=== PATIENT | female | born 1980 | race Caucasian/White ===

== ENCOUNTER 2017-02-05 06:46 | Emergency (ER) | payer OTHER ==
[2017-02-05 11:05] VITALS: BP 130/64
== END 2017-02-05 11:00 | disposition home or self-care (01) ==
LOC: ED 06:46
DX: L72.3 Sebaceous cyst (principal); R55 Syncope and collapse

== ENCOUNTER 2017-05-11 17:48 | Emergency (ER) | payer OTHER | END 2017-05-11 19:20 | disposition left against medical advice (07) | LOC: ED 17:48 | DX: Z53.21 Procedure and treatment not carried out due to patient leaving prior to being seen by health care provider (principal) ==

== ENCOUNTER 2017-05-17 17:50 | Emergency (ER) | payer OTHER ==
[~2017-05-17] VITALS: Ht 152.4 cm; Wt 96.8 kg
[2017-05-17 19:28] LABS: BASOPHIL % 0.4 % (0-2); PLATELET COUNT 288 x10^3mcL (130-400)
[2017-05-17 19:36] LABS: RED CELL DISTRIBUTION WIDTH 14.6 % (11.5-14.5)
[2017-05-17 19:40] LABS: CALCIUM 8.8 mg/dL (8.5-10.1); CARBON DIOXIDE 26.6 mmol/L (21-32); CHLORIDE SERUM 102 mmol/L (98-107); CREATININE SERUM 0.5 mg/dL (0.6-1.0); GFR1 > 60 mL/min; GLUCOSE SERUM 94 mg/dL (74-106); POTASSIUM SERUM 3.4 mmol/L (3.5-5.1); SODIUM SERUM 133 mmol/L (136-145)
[2017-05-17 19:45] LABS: ALBUMIN 3.7 g/dL (3.4-5.0); ALKALINE PHOSPHATASE 55 U/L (46-116); ALT/SGPT 15 U/L (14-59); AST/SGOT 15 U/L (15-37); BILIRUBIN TOTAL 0.32 mg/dL (0.20-1.00); TOTAL PROTEIN, SERUM 7.5 g/dL (6.4-8.2)
[2017-05-17 21:05] VITALS: BP 131/79
== END 2017-05-17 21:05 | disposition home or self-care (01) ==
LOC: ED 17:50
PROVIDERS: Emergency Medicine
DX: M79.671 Pain in right foot (principal); E11.9 Type 2 diabetes mellitus without complications; M79.672 Pain in left foot; Z79.899 Other long term (current) drug therapy
CPT/HCPCS: 36415

== ENCOUNTER 2018-04-09 08:04 | Emergency (ER) | payer OTHER ==
[~2018-04-09] VITALS: Ht 152.4 cm; Wt 86.2 kg
[2018-04-09 08:10] VITALS: Ht 152.4 cm; Wt 86.2 kg
[2018-04-09 08:49] VITALS: BP 118/66
== END 2018-04-09 08:49 | disposition home or self-care (01) ==
LOC: ED 08:04
DX: R13.10 Dysphagia, unspecified (principal); I10 Essential (primary) hypertension; E11.9 Type 2 diabetes mellitus without complications
CPT/HCPCS: 82962

== ENCOUNTER 2018-11-21 09:45 | Emergency (ER) | payer BC, OTHER ==
[~2018-11-21] VITALS: Ht 152.4 cm; Wt 87.5 kg
[2018-11-21 10:37] VITALS: Ht 152.4 cm; Wt 87.5 kg
[2018-11-21 13:04] LABS: CALCIUM 9.1 mg/dL (8.5-10.1); CARBON DIOXIDE 28.1 mmol/L (21-32); CHLORIDE SERUM 102 mmol/L (98-107); CREATININE SERUM 0.6 mg/dL (0.6-1.0); GFR1 > 60 mL/min; GLUCOSE SERUM 84 mg/dL (74-106); POTASSIUM SERUM 3.7 mmol/L (3.5-5.1); SODIUM SERUM 138 mmol/L (136-145)
[2018-11-21 13:07] LABS: BASOPHIL % 0.3 % (0-2); PLATELET COUNT 247 x10^3mcL (130-400)
[2018-11-21 13:16] LABS: T3 TOTAL 0.94 ng/mL
[2018-11-21 13:19] LABS: ALBUMIN 4.1 g/dL (3.4-5.0); ALKALINE PHOSPHATASE 51 U/L (46-116); ALT/SGPT 20 U/L (14-59); AST/SGOT 19 U/L (15-37); BILIRUBIN TOTAL 0.5 mg/dL (0.20-1.00); CHOLESTEROL 149 mg/dL (<200); CHOLESTEROL/HDL RATIO 3.2; HDL CHOLESTEROL 46 mg/dL (40-60); LIPASE 203 IU/L (73-393); RED CELL DISTRIBUTION WIDTH 16.3 % (11.5-14.5); TRIGLYCERIDES 44 mg/dL (<150)
[2018-11-21 13:21] LABS: FREE T4 0.84 ng/dL (0.76-1.46); FREE THYROXINE INDEX 2.4 ug/dL (1.4-4.5); T4(THYROXINE) 7.2 ug/dL (4.7-13.3)
[2018-11-21 14:37] VITALS: BP 125/79
== END 2018-11-21 14:37 | disposition home or self-care (01) ==
LOC: ED 09:45
PROVIDERS: Specialist
DX: R53.1 Weakness (principal); R42 Dizziness and giddiness; I10 Essential (primary) hypertension; E11.9 Type 2 diabetes mellitus without complications; Z98.890 Other specified postprocedural states
CPT/HCPCS: 36415; 83880; 84439; Q0092

== ENCOUNTER 2020-04-01 09:46 | Emergency (ER) | payer BC, OTHER ==
[~2020-04-01] VITALS: Ht 152.4 cm; Wt 83.5 kg
[2020-04-01 09:57] VITALS: Ht 152.4 cm; Wt 83.5 kg
[2020-04-01 12:00] VITALS: BP 128/67
== END 2020-04-01 12:00 | disposition home or self-care (01) ==
LOC: ED 09:46
DX: S63.612A Unspecified sprain of right middle finger, initial encounter (principal); I10 Essential (primary) hypertension; Z98.890 Other specified postprocedural states; X58.XXXA Exposure to other specified factors, initial encounter; Y93.89 Activity, other specified; Y92.89 Other specified places as the place of occurrence of the external cause; Y99.8 Other external cause status